=== PATIENT | male | born 1960 | race American Indian/Alaskan Native ===

== ENCOUNTER 2017-09-15 13:40 | Outpatient (CLI) | payer BC ==
--- NOTE | 2017-09-15 16:56 | XRay Report ---
X-Ray LEFT FOOT THREE VIEWS: 09/15/17 CLINICAL: Pain in the great toe. FINDINGS: No fracture or dislocation. Mild hallux valgus deformity. Mild arthritic change at the first MTP joint with no erosions. Mild soft tissue swelling at the first MTP joint. The rest of the joints are normal. 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
== END 2017-09-15 13:41 | disposition home or self-care (01) ==
LOC: SPVIMAG 13:40
PROVIDERS: ATTEND Orthopaedic Surgery Sports Medicine
DX: M20.12 Hallux valgus (acquired), left foot (principal); M19.072 Primary osteoarthritis, left ankle and foot